=== PATIENT | male | born 1995 | race Caucasian/White ===

== ENCOUNTER 2019-01-15 12:29 | Emergency (ER) | payer OTHER ==
[~2019-01-15] VITALS: Ht 177.8 cm; Wt 93.4 kg
[2019-01-15 12:33] VITALS: BP 145/78; Ht 177.8 cm; Wt 93.4 kg
== END 2019-01-15 13:38 | disposition home or self-care (01) ==
LOC: ED 12:29
DX: R11.2 Nausea with vomiting, unspecified (principal); R10.816 Epigastric abdominal tenderness; R10.812 Left upper quadrant abdominal tenderness; R10.814 Left lower quadrant abdominal tenderness
CPT/HCPCS: Q0162